=== PATIENT | male | born 1995 | race Hispanic/Latino ===

== ENCOUNTER 2025-03-26 19:03 | Emergency (ER) | payer OTHER, SELFPAY ==
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
--- OUTSIDE RECORDS SUMMARY | 2025-03-26 19:05 | XMS_ITS | CONTINUITY OF CARE DOCUMENT ---
Author Name aby badillo Address Unknown Organization [facility] Address [address] [place] [address] Phone [phone] Care Team Providers Care Industrial Nurse Name Role Phone Monika MORAES, Salo Unavailable [phone] RIZWANA MORAES, MARCUS Unavailable Unavailable TOMÁS MORAES, AMIE Unavailable INSURANCE PROVIDERS Payer name Policy type / Coverage type [place] red republican ID [id number] PAY [id number]
[2025-03-26 19:20] VITALS: BP 136/89; PULSE 82; RESP 16; TEMP 36.5; O2SAT 99
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
--- OUTSIDE RECORDS SUMMARY | 2025-03-26 21:01 | XMS_ITS | CONTINUITY OF CARE DOCUMENT ---
Author Name aby badillo Address Unknown Organization [facility] Address [address] [place] [address] Phone [phone] Care Team Providers Care Atomic Physics Teacher Name Role Phone Monika MORAES, Salo Unavailable RIZWANA MORAES, MARCUS Unavailable Unavailable TOMÁS MORAES, AMIE Unavailable INSURANCE PROVIDERS Payer name Policy type / Coverage type [place] [employer] party ID [id number] PAY [id number]
[2025-03-26] MEDS: ACETAMINOPHEN 500 MG TABLET 1000 MG PO (21:04)
[2025-03-26] MEDS: KETOROLAC 10 MG TABLET PO (21:05)
[2025-03-26 22:30] VITALS: BP 132/82; PULSE 68; RESP 18; TEMP 36.6; O2SAT 100
[2025-03-27 00:01] VITALS: BP 129/87; PULSE 78; RESP 17; TEMP 36.7; O2SAT 98
== END 2025-03-27 00:03 | disposition home or self-care (01) ==
PROVIDERS: Emergency Provider Student in an Organized Health Care Education/Training Program
DX: S42.432A Displaced fracture (avulsion) of lateral epicondyle of left humerus, initial encounter for closed fracture (principal); V49.40XA Driver injured in collision with unspecified motor vehicles in traffic accident, initial encounter
CPT/HCPCS: 71046; 72125; 73080; 73200; 99284; A4565; A9270